=== PATIENT | female | born 1995 | race Caucasian/White ===

== ENCOUNTER 2016-12-11 12:27 | Emergency (ER) | payer OTHER ==
[~2016-12-11] VITALS: Ht 162.6 cm; Wt 66.8 kg
[2016-12-11 13:00] VITALS: BP 108/64
[2016-12-11] MEDS ORDERED: Tylenol with Codeine PO (13:19)
[2016-12-11] MEDS ORDERED: MELO-273 PO (13:19)
== END 2016-12-11 15:47 | disposition left against medical advice (07) ==
LOC: EMS 12:28
DX: M54.2 Cervicalgia (principal); Z53.21 Procedure and treatment not carried out due to patient leaving prior to being seen by health care provider

== ENCOUNTER 2017-05-16 13:16 | Emergency (ER) | payer OTHER ==
[~2017-05-16] VITALS: Ht 162.6 cm; Wt 69.1 kg
[~2017-05-16 13:16] MED LIST: MELO-273 PO; Tylenol with Codeine PO
[2017-05-16] MEDS ORDERED: ONDANSETRON HCL 4 MG/2 ML VIAL IVP ONE (15:15)
[2017-05-16] MEDS ORDERED: KETOROLAC TROMETHAMINE 30 MG/ML VIAL IVP ONE (15:15)
[2017-05-16 15:26] LABS: BASOPHILS % (AUTO) 0.5 % (0.0-2.0); EOSINOPHILS % (AUTO) 0.8 % (1.0-6.0); HEMATOCRIT 40.7 % (36-46); HEMOGLOBIN 13.9 g/dL (12.0-16.0); LYMPHOCYTES # (AUTO) 1.5 K/uL (1.0-4.8); LYMPHOCYTES % (AUTO) 21.4 % (22.0-44.0); MEAN CORPUSCULAR HGB CONC 34.2 G/dL (31.0-37.0); MEAN CORPUSCULAR VOLUME 97 fL (80-100); MONOCYTES # (AUTO) 0.6 K/uL (0.1-1.0); NEUTROPHILS # (AUTO) 4.9 K/uL (1.8-7.7); NEUTROPHILS % (AUTO) 69.3 % (40.0-70.0); PLATELET COUNT (AUTO) 276 K/uL (150-450); RED BLOOD CELL COUNT(AUTO) 4.22 MIL/uL (4.00-5.20); RED CELL DISTRIBUTION WIDTH 13.2 % (11.5-14.5); WHITE BLOOD COUNT (AUTO) 7.1 K/uL (4.5-11.0)
[2017-05-16 15:33] LABS: ANION GAP 9 mmol/L (8-16); CALCIUM, TOTAL 8.5 mg/dL (8.8-10.5); CARBON DIOXIDE 25 mmol/L (22-29); CHLORIDE 107 mmol/L (98-107); GLOMERULAR FILTR. RATE CALC > 60 mL/min (>60); POTASSIUM 3.8 mmol/L (3.5-5.1); SODIUM SERUM 141 mmol/L (136-145); UREA NITROGEN, BLOOD 11 mg/dL (7-18)
[2017-05-16 15:39] LABS: ALANINE AMINOTRANSFERASE 25 U/L (12-78); ASPARTATE AMINOTRANSFERASE 19 U/L (15-37); BILIRUBIN,TOTAL 0.5 mg/dL (0.1-1.0); TOTAL PROTEIN, SERUM 7.5 g/dL (6.4-8.2)
[2017-05-16 15:49] LABS: RBC MORPHOLOGY COMMENT DIMORPHIC RBC
[2017-05-16 15:54] LABS: APPEARANCE,URINE CLEAR (CLEAR); GLUCOSE, URINE (UA) NEGATIVE (NEGATIVE); KETONES,URINE TRACE mg/dL (NEGATIVE); LEUKOCYTE ESTERASE ,URINE NEGATIVE (NEGATIVE); OCCULT BLOOD,URINE NEGATIVE (NEGATIVE); PH,URINE 7.5 (5.0-8.0); PROTEIN,URINE TRACE (NEGATIVE)
[2017-05-16 16:01] LABS: ADD UA MICROSCOPIC NO
[2017-05-16 16:27] VITALS: BP 109/60
== END 2017-05-16 17:15 | disposition home or self-care (01) ==
LOC: EMS 13:17
DX: R10.84 Generalized abdominal pain (principal); R11.2 Nausea with vomiting, unspecified; R19.7 Diarrhea, unspecified
CPT/HCPCS: 36415; 76700; 80053; 81003; 83690; 84703; 85025; 93005; 96374; 96375; 99285; J1885; J2405

== ENCOUNTER 2017-06-14 02:17 | Emergency (ER) | payer OTHER ==
[~2017-06-14] VITALS: Ht 162.6 cm; Wt 65.5 kg
[2017-06-14] MEDS ORDERED: BENZONATATE 100 MG CAPSULE PO ONE (03:00)
[2017-06-14] MEDS ORDERED: ACETAMINOPHEN 325 MG TABLET PO ONE (03:00)
[2017-06-14 03:32] LABS: INFLUENZA TYPE B NEGATIVE FOR TYPE B (NEGATIVE)
[2017-06-14 03:39] VITALS: BP 119/71
== END 2017-06-14 03:43 | disposition home or self-care (01) ==
LOC: EMS 02:18
DX: J06.9 Acute upper respiratory infection, unspecified (principal)
CPT/HCPCS: 87430; 87804; 99284

== ENCOUNTER 2018-04-23 23:02 | Emergency (ER) | payer OTHER ==
[~2018-04-23] VITALS: Ht 162.6 cm; Wt 72.5 kg
[2018-04-23] MEDS ORDERED: ALBU8.5H8 IH (23:35)
[2018-04-24 02:13] VITALS: BP 112/60
== END 2018-04-24 02:52 | disposition home or self-care (01) ==
LOC: EMS 23:03
DX: F41.9 Anxiety disorder, unspecified (principal); R06.02 Shortness of breath; M54.6 Pain in thoracic spine; M25.519 Pain in unspecified shoulder; G89.29 Other chronic pain
CPT/HCPCS: 99283

== ENCOUNTER 2018-09-29 23:06 | Emergency (ER) | payer OTHER ==
[~2018-09-29] VITALS: Ht 162.6 cm; Wt 87.7 kg
[~2018-09-29 23:06] MED LIST changes: +ALBU8.5H8 IH; -MELO-273 PO; -Tylenol with Codeine PO
[2018-09-30 00:17] VITALS: BP 120/68
== END 2018-09-30 00:17 | disposition home or self-care (01) ==
LOC: EMS 23:07
DX: L20.9 Atopic dermatitis, unspecified (principal)